=== PATIENT | male | born 1990 | race Caucasian/White ===

== ENCOUNTER 2017-01-06 16:09 | Observation (INO) | payer OTHER ==
[~2017-01-06] VITALS: Ht 185.4 cm; Wt 70.9 kg
[2017-01-06 17:00] LABS: HEMATOCRIT 44.4 % (39.2-51.8); HEMOGLOBIN 15.3 g/dL (13.7-18.0); WHITE BLOOD COUNT 9.6 x10^3/uL (3.4-10)
[2017-01-06 17:03] LABS: ASPARTATE AMINO TRANSFERASE 26 U/L (15-37); BLOOD UREA NITROGEN 14 mg/dL (7-18)
[2017-01-06 17:09] LABS: ACETAMINOPHEN < 2 mcg/mL (10-30)
[2017-01-06 19:29] LABS: DAU SCREEN DISCLAIMER
[2017-01-06] MEDS ORDERED: VENL75CA PO (21:08)
[2017-01-06] MEDS ORDERED: CLON1TAB23 PO (21:08)
[2017-01-06] MEDS ORDERED: ACETAMINOPHEN 325 MG TABLET PO PRN (21:30)
[2017-01-06 22:11] VITALS: BP 118/78
[2017-01-07 08:00] VITALS: BP 110/67
[2017-01-07] MEDS ORDERED: LORazepam 1MG TABLET PO PRN ×2 (10:30)
[2017-01-07] MEDS ORDERED: ZIPRASIDONE 20 MG INJ IM ONE ×2 (11:30)
[2017-01-07 19:54] VITALS: BP 115/72
[2017-01-08] MEDS: ZIPRASIDONE 20 MG INJ IM PRN ×2 (01:41→11:30)
[2017-01-08 19:30] VITALS: BP 127/71
== END 2017-01-08 20:37 ==
LOC: ED 18:30 → EDIP 20:23 → 3E 22:10
PROVIDERS: ADMIT Hospitalist; ATTEND Hospitalist
DX: R45.851 Suicidal ideations (principal); F32.9 Major depressive disorder, single episode, unspecified
CPT/HCPCS: 36415; 80053; 80307; 80329; 85025; 96372; 99285; G0378; J3486; G0479; G0480